=== PATIENT | male | born 1955 | race Two or more races ===

== ENCOUNTER 2016-11-10 16:55 | Emergency (ER) | payer MEDICAID ==
[~2016-11-10] VITALS: Ht 162.6 cm; Wt 62.1 kg
[2016-11-10] MEDS ORDERED: Meclizine 25mg tab ORAL ONE (17:30)
--- NOTE | 2016-11-10 17:36 | Emergency Room Report ---
History of Present Illness General Chief Complaint: Dizziness Source: Patient Present Illness HPI This is a 61-year-old male who presented after increased dizziness as this morning. Patient had sudden onset of symptoms associated with her left-sided headache. Patient reported having moderate headache. He reports having increased symptoms with head movement. He denied any tinnitus. He had not been having any diarrhea. He had reportedly had multiple episodes of vomiting Allergies: Coded Allergies: No Known Allergies (Unverified , 11/10/16) Patient History Past Medical History: see triage record Reviewed Nursing Documentation: PMH: Agreed, PSxH: Agreed Nursing Documentation-PMH Past Medical History: No History, Except For Hx Diabetes: Yes Review of Systems All Other Systems: negative except mentioned in HPI Physical Exam Vital Signs Date Time Temp Pulse Resp B/P Pulse Ox O2 Delivery O2 Flow Rate FiO2 11/10/16 17:02 98.1 96 22 177/93 96 Room Air Sp02 EP Interpretation: reviewed, normal General Appearance: normal inspection, well appearing, no apparent distress, alert Head: atraumatic ENT: normal ENT inspection, hearing grossly normal, normal voice, other - nystagmus Neck: normal inspection, full range of motion, supple, no bony tend Respiratory: normal inspection, lungs clear, normal breath sounds, no respiratory distress, no retraction, no wheezing Cardiovascular #1: regular rate, rhythm, no edema Gastrointestinal: normal inspection, normal bowel sounds, non tender, soft, no guarding, no hernia Genitourinary: no CVA tenderness Musculoskeletal: normal inspection, back normal, normal range of motion Neurologic: normal inspection, alert, responsive, speech normal Psychiatric: normal inspection, judgement/insight normal, mood/affect normal Skin: normal inspection, normal color, no rash Medical Decision Making Diagnostic Impression: Primary Impression: Vertigo ER Course Patient presented for dizziness. Differential diagnosis included was not limited to CVA, vertebrobasilar insufficiency, myocardial infarction, benign positional vertigo, labyrinthitis, aspirin overdose among others. The patient has exam consistent with peripheral vertigo likely do to benign positional vertigo. Patient was given oral meclizine. Patient had improvement in symptoms.CT the head read by radiology showed a motion artifact in the lower posterior fossa a CT head was otherwise normal. The patient is advised to follow up with primary care doctor in 1-2 days. Patient is advised to return if any worsening condition or if any changes in status that are concerning. Last Vital Signs Date Time Temp Pulse Resp B/P Pulse Ox O2 Delivery O2 Flow Rate FiO2 11/10/16 17:02 98.1 96 22 177/93 96 Room Air Status: improved Disposition: HOME, SELF-CARE Condition: Stable Scripts Meclizine Hcl* (MECLIZINE*) 25 Mg Tablet 25 MG ORAL THREE TIMES A DAY, #30 TAB Prov: Daniel Carrion 11/10/16 Ondansetron (Zofran) 4 Mg Tablet 4 MG ORAL Q6H Y for Nausea & Vomiting, #30 TAB 0 Refills Prov: Daniel Carrion 11/10/16 Daniel Carrion November 10, 2016 17:36
[2016-11-10] MEDS ORDERED: ZOFRAN4 MG ORAL (19:08)
[2016-11-10] MEDS ORDERED: MECLIZINE HCL25 MG ORAL (19:08)
[2016-11-10 19:27] VITALS: BP 143/85
[2016-11-10 19:35] VITALS: BP 160/77
--- NOTE | 2016-11-11 08:42 | Diagnostic Imaging Report ---
Indications: Vertigo, cephalgia Technique: Continuous helical CT imaging of the brain was performed with automatic exposure control on a Siemens sensation [address] scanner. Axial and coronal images were reconstructed at 5 mm slice thickness and interval. CTDI volume(s): 70 mGy Total DLP: 1347 mGy-cm Findings: Comparison: None. Posterior fossa is substantially degraded by artifact. Ventricles, cisterns, sulci are mildly, diffusely prominent. No evidence of supratentorial mass or hemorrhage, other attenuation abnormality, mass effect, midline shift, hydrocephalus or increased intracranial pressure. Bone window images are unremarkable. Focal mucoperiosteal thickening suggested in right maxillary sinus. Remainder visualized paranasal sinuses and mastoid air cells are clear. IMPRESSION: Examination virtually nondiagnostic for acute pathology in the posterior fossa and subtle but potentially significant abnormalities including acute hemorrhage may be missed, due to skull base/motion artifact. Consider MRI for further evaluation as clinically indicated. Otherwise no evidence of acute intra-pathology Mild atrophy Suggestion of mild sinus disease Written preliminary report placed in PACS nov 10 [id number]. This correlates with [facility] preliminary report. The CT scanner at [facility] is accredited by the [employer] and the scans are performed using protocols designed to limit radiation exposure to as low as reasonably achievable to attain images of sufficient resolution adequate for diagnostic evaluation.
== END 2016-11-10 19:30 | disposition home or self-care (01) ==
LOC: EMR 18:47
DX: R42 Dizziness and giddiness (principal); R51 Headache; E11.9 Type 2 diabetes mellitus without complications
CPT/HCPCS: 70450; 82962; 99284